=== PATIENT | male | born 2000 | race Two or more races ===

== ENCOUNTER 2025-06-23 21:11 | Emergency (ER) | payer SELFPAY ==
[~2025-06-23] VITALS: Ht 182.9 cm; Wt 170.7 kg
[2025-06-23 21:17] VITALS: BP 127/52; PULSE 103; RESP 16; TEMP 98.4; O2SAT 96
== END 2025-06-23 22:49 | disposition left against medical advice (07) ==
LOC: ER 21:11
DX: S91.311A Laceration without foreign body, right foot, initial encounter (principal); Z53.21 Procedure and treatment not carried out due to patient leaving prior to being seen by health care provider; W25.XXXA Contact with sharp glass, initial encounter; Y93.89 Activity, other specified; Y92.89 Other specified places as the place of occurrence of the external cause; Y99.8 Other external cause status